=== PATIENT | male | born 1980 ===

== ENCOUNTER 2017-12-21 10:04 | Emergency (ER) | payer OTHER ==
[2017-12-21] MEDS ORDERED: Sodium Chloride 0.9% 1,000 ML IV STA ×2 (10:30→12:13)
--- NOTE | 2017-12-21 10:40 | ED PDOC ---
HPI: General Adult Time Seen by Provider: 12/21/17 10:16 Chief Complaint (Nursing): Abnormal Labs Chief Complaint (Provider): Cpk elevation History Per: Patient History/Exam Limitations: no limitations Onset/Duration Of Symptoms: Days Current Symptoms Are (Timing): Still Present Additional Complaint(s): Pt. with body aches since Wednesday after working out on Wed. States he did his usual workout. Had more pain then usual so went to pcp yesterday. No trouble urinating, nausea, vomit, diarrhea, abd pain, weakness, headaches, dizziness. PCP ordered cpk that was elevated and said to go to the ER for IV and repeat evaluation. Past Medical History Reviewed: Nursing Documentation, Vital Signs Vital Signs: Last Vital Signs Temp 98.5 F 12/21/17 10:15 Pulse 63 12/21/17 10:15 Resp 19 12/21/17 10:15 BP 134/86 12/21/17 10:15 Pulse Ox 98 12/21/17 10:42 - Medical History PMH: No Chronic Diseases - Surgical History Surgical History: No Surg Hx - Family History Family History: States: Unknown Family Hx - Living Arrangements Living Arrangements: With Family - Immunization History Hx Tetanus Toxoid Vaccination: No Hx Influenza Vaccination: No Hx Pneumococcal Vaccination: No - Allergies Allergies/Adverse Reactions: Allergies Allergy/AdvReac Type Severity Reaction Status Date / Time No Known Allergies Allergy Verified 12/21/17 10:29 Review of Systems ROS Statement: Except As Marked, All Systems Reviewed And Found Negative Musculoskeletal: Positive for: Other (body aches) Physical Exam - Reviewed Nursing Documentation Reviewed: Yes Vital Signs Reviewed: Yes - Physical Exam Appears: Positive for: Well, Non-toxic, No Acute Distress Head Exam: Positive for: ATRAUMATIC, NORMAL INSPECTION, NORMOCEPHALIC Skin: Positive for: Normal Color, Warm, DRY Eye Exam: Positive for: EOMI, Normal appearance, PERRL ENT: Positive for: Normal ENT Inspection Neck: Positive for: Normal, Painless ROM Cardiovascular/Chest: Positive for: Regular Rate, Rhythm Respiratory: Positive for: CNT, Normal Breath Sounds Pulses-Dorsalis Pedis (L): 2+ Pulses-Dorsalis Pedis (R): 2+ Pulses-Radial (L): 2+ Pulses-Radial (R): 2+ Gastrointestinal/Abdominal: Positive for: Normal Exam, Soft. Negative for: Tenderness Back: Positive for: Normal Inspection. Negative for: L CVA Tenderness, R CVA Tenderness Extremity: Positive for: Normal ROM. Negative for: Tenderness, Pedal Edema Neurologic/Psych: Positive for: Alert, brand leader II-XII, Oriented. Negative for: Motor/Sensory Deficits - Laboratory Results Result Diagrams: 12/21/17 09:45 12/21/17 09:45 Interpretation Of Abn Labs: [id number] cpk, ast/alt mild elevation - ECG O2 Sat by Pulse Oximetry: 98 Pulse Ox Interpretation: Normal - Progress ED Course And Treament: 1042: No pain currently. Will give IV fluids and repeat CPK. Was 14,000 per pt. 1220: Stable. AAOx3. Pain free. Spoke with Dr. King, pt. pcp, with pt. Wants pt. to get 1 more liter of fluids and dc to see him in 1 week. States elevated liver enzymes like related to cpk. Pain urinated with no issues. Disposition - Clinical Impression Clinical Impression: Myalgia, Elevated liver enzymes, Elevated CPK - Patient ED Disposition Is Patient to be Admitted: No Counseled Patient/Family Regarding: Studies Performed, Diagnosis, Need For Followup - Disposition Referrals: [facility] [Outside] - 12/22/17 Disposition Time: 12:23 Condition: STABLE Additional Instructions: Return if not better in 3 days. You elevated liver enzymes and cpk. Make sure to see your doctor for follow up in 1 week. Drink a lot of fluids. Instructions: Muscle and Bone Pain (DC) Forms: [employer] ([place])
[2017-12-21 11:21] LABS: URINE BILIRUBIN NEGATIVE (NEGATIVE); URINE BLOOD NEGATIVE (NEGATIVE); URINE CLARITY CLEAR (Clear); URINE COLOR STRAW (YELLOW); URINE GLUCOSE (UA) NEG (Normal); URINE LEUKOCYTE ESTERASE NEG Leu/uL (Negative); URINE PROTEIN NEGATIVE (NEGATIVE); URINE UROBILINOGEN 0.2-1.0 mg/dL (0.2-1.0)
[2017-12-21 11:21] LABS: ALB/GLOB RATIO 1.3 (1.0-2.1); ALT/SGPT 162 U/L (21-72); AST/SGOT 356 U/L (17-59); BLOOD UREA NITROGEN 13 mg/dl (9-20); GFR NON-AFRICAN AMERICAN > 60
[2017-12-21 11:22] LABS: BASO % 0.4 % (0.0-2.0); EOS # 0.2 K/uL (0.0-0.7); EOS % 3.6 % (0.0-4.0); HEMOGLOBIN 15.2 g/dL (12.0-18.0); LYMPH # 2.1 K/uL (1.0-4.3); LYMPH % 34.3 % (20.0-40.0); MEAN CELL VOLUME 88.6 fl (80.0-94.0); MEAN CORPUSCULAR HEMOGLOBIN 30.9 pg (27.0-31.0); MEAN CORPUSCULAR HGB CONC 34.9 g/dL (33.0-37.0); MEAN PLATELET VOLUME 7.3 fl (7.2-11.7); MONO # 0.3 K/uL (0.0-0.8); MONO % 5.7 % (0.0-10.0); NEUT # 3.4 K/uL (1.8-7.0); NRBC % 0.2 % (0.0-0.0); RBC 4.93 Mil/uL (4.40-5.90); RED CELL DISTRIBUTION WIDTH 13.1 % (11.5-14.5)
[2017-12-21 13:49] VITALS: BP 132/70; PULSE 78; RESP 18; TEMP 98; O2SAT 100
--- NOTE | 2017-12-21 18:38 | CARD ---
APPROVED REPORT Date of service: 12/21/2017 EKG Measurement Heart [id number] <Conclusion> Sinus bradycardia Otherwise normal ECG
== END 2017-12-21 13:48 | disposition home or self-care (01) ==
LOC: H.ER 10:04
DX: R74.8 Abnormal levels of other serum enzymes (principal); R94.5 Abnormal results of liver function studies; M79.1 Myalgia
CPT/HCPCS: 80053; 81003; 82550; 83735; 84100; 84484; 85025; 93005; 99282; J7030